=== PATIENT | male | born 1965 | race Caucasian/White ===

== ENCOUNTER → 2020-11-07 | Outpatient (CLI) | payer OTHER ==
[~2020-11-07] MED LIST: LORA0.5T96 PO; MELO7.5T29 PO; OMEP20CA16 PO; [UNRECOGNIZED DRUG - REMARK]
--- NOTE | 2020-11-07 15:45 | PDOC1 ---
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 Patient reports pain is constant throbbing radiatin g change during the day worse activity cramping aching pain in the shoulders as well as the left knee with a tibial plateau fracture which is hairline but present. Patient reports he has had multiple physical therapies over the years chiropractic treatment does exercise frequently and sometimes daily patient reports the pain can awaken him from sleep at night least twice a night he does take meloxicam at night which does help decrease the pain helps him sleep better patient reports he does not affect his bowel bladder control but does affect his body walk with the left knee patient reports his disability rating 0-10 10 being worst is a 7 family responsibilities and occupational activities as well as self-care activities 5 and recreation through social activity 5 with sexual behavior and 4 with life support activities. Patient to have plain films of the joints as well as lumbar spine showing a significant disc space decrease at L5S1 left knee showing a tibial plateau reticular microfracture from April 2020 as well. Patient reports a loss of motor function but significant decrease in range of motion of the shoulders and upper extremities bilaterally, most noticeably when changing closed or reaching forward weightbearing activities with the upper extremity significantly difficult secondary to loss of range of motion and pain in the bilateral shoulders. PAST MEDICAL HISTORY: PMH: Esophageal reflux with Gutierrez's esophagus, posttraumatic stress disorder PREVIOUS SURGERIES: Past Surgical Hx: Right shoulder bone marrow aspirate CURRENT MEDICATIONS: Current Meds: Active Scripts Medications Dose Route/Sig Max Daily Dose Days Date Category [stantin unknown] HS 11/07/20 Reported Omeprazole 20 Mg Capsule. 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 REVIEW OF SYSTEMS: ROS: Positive for those items mentioned in history of present illness, all systems are reviewed, otherwise negative ,and are complete full and well-documented on patient's chart. PHYSICAL EXAM: VS: Blood pressure is 159/95 pulse 57 respirations 18 temperature 97.4 F height is 5 feet 9 inches weight is 175 pounds PE: PHYSICAL EXAMINATION: GENERAL: The patient is awake, alert, oriented, appropriate, very pleasant in demeanor. HEENT: Shows normocephalic, atraumatic. Extraocular movements are intact and symmetrical. Oral cavity: Mucous membranes moist and pink. Dentition is intact. NECK: Shows anterior throat supple without palpable lymphadenopathy noted. Swallow reflex symmetrical. CHEST: Shows normal on inspection. Breath sounds are clear bilaterally, distant but no rales rhonchi or wheeze auscultated. HEART: Shows S1, S2 clear. No murmurs auscultated. ABDOMEN: Soft, nontender, nondistended. No palpable organomegaly is noted. BACK: Shows spine grossly in the midline. Normal-appearing cervical lordotic curvature. Cervical paraspinous muscles show symmetrical with inspection, on palpation some mild tenderness the inferior aspect the cervical paraspinous musculature bilaterally with full rotation motion cervical spine both laterally as well as full extension full forward flexion without significant difficulty or pain reported. There is slightly increased thoracic kyphosis, some minor flattening of the lumbar lordotic curvature. Lumbar paraspinous muscles show symmetrical on inspection, on palpation shows some moderate tenderness diffusely throughout the upper, middle and lower distribution of the paraspinous muscles bilaterally and also into the lower thoracic paraspinous musculature, firm and tender, but without specific trigger points, without radiation of pain. The patient has good rotational motion of the lumbar spine, both laterally as well as extension and flexion without significant difficulty. No tenderness over the spinous processes, sacrum or sacroiliac regions. EXTREMITIES: Lower extremities show deep tendon reflexes 2+ in the patellar and tendo calcaneus tendons. Motor exam is 5 on a scale of 5 with right dorsiflexion, extension, quadriceps and hamstring flexion and 5/5 on the left. Peripheral pulses are 1+ posterior tibial. No peripheral edema is noted bilaterally. Lower extremities are warm and dry to touch, equal in color and appearance. Straight leg raise noted to be negative bilaterally. Gaenslen's and Tee's maneuvers are negative as well. The patient is able to stand, stand on his toes that significant difficulty loss of balance walks with a normal-appearing gait does not appear to favor the right or left lower extremity significantly does not use any assistive devices to ambulate. Patient's left knee shows normal appearance compared to the right in size, mild tenderness in the medial collateral ligament only with good range of motion no ratcheting or crepitus. 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 SKIN: Shows warm and dry, good turgor. No edema. No sores, rashes or bruising throughout. IMPRESSION: Impression: 55-year-old male with long history of bilateral shoulder pain left knee pain also low back pain Plain films as noted Gastroesophageal reflux Sleep apnea Posttraumatic stress disorder Plan: Options were discussed with patient occluding conservative management continued physical therapies interventional techniques. Patient would like to interventional techniques. We discussed intra-articular joint injection to both the shoulders and the left knee patient will wait for preauthorization with insurance provider, once this is obtained return for intra-articular shoulder joint injections followed by left knee joint injection. In the meantime patient continue with stretching strength exercises activity as tolerated and oral analgesics as currently. DEXTER REESE MD Nov 07, 2020 15:45
== END | disposition home or self-care (01) ==
LOC: PNCL 14:02
PROVIDERS: ATTEND Anesthesiology
DX: M19.011 Primary osteoarthritis, right shoulder (principal); M19.012 Primary osteoarthritis, left shoulder; M25.562 Pain in left knee; M54.5 Low back pain; K21.9 Gastro-esophageal reflux disease without esophagitis; F43.10 Post-traumatic stress disorder, unspecified; K22.70 Barrett's esophagus without dysplasia; G47.30 Sleep apnea, unspecified; Z88.8 Allergy status to other drugs, medicaments and biological substances
CPT/HCPCS: 99205; G0463